=== PATIENT | female | born 1995 | race African-American/Black ===

== ENCOUNTER 2016-11-12 04:36 | Inpatient (IN) | payer MEDICAID ==
[~2016-11-12] VITALS: Ht 165.1 cm; Wt 83.0 kg
[2016-11-12 05:00] VITALS: BP 111/79
[2016-11-12] MEDS ORDERED: FENTANYL PF 100 MCG/2 ML VIAL. IV PRN (05:15)
[2016-11-12] MEDS ORDERED: IBUPROFEN 600 MG TABLET. PO PRN (05:15)
[2016-11-12] MEDS ORDERED: 0.9 % SODIUM CHLORIDE 10 ML DISP.SYRIN. IV PRN ×2 (05:15→13:30)
[2016-11-12] MEDS ORDERED: IBUPROFEN 800 MG TABLET. PO PRN (05:15)
[2016-11-12] MEDS ORDERED: BUTORPHANOL 2 MG VIAL. IV PRN (05:15)
[2016-11-12] MEDS ORDERED: OXYTOCIN 30 UNIT/500 ML PREMIX 500 ML IV PRN ×3 (05:15→13:30)
[2016-11-12] MEDS ORDERED: LIDOCAINE 1% PF 30 ML VIAL. INJ PRN (05:15)
[2016-11-12] MEDS ORDERED: TERBUTALINE 1 MG/ML VIAL. SQ PRN (05:15)
[2016-11-12] MEDS: IV RINGERS,LACTATED 1000ML 1,000 ML IV SCH ×2 (05:30→10:27)
[2016-11-12] MEDS ORDERED: OXYTOCIN in NORMAL SALINE PREMIX 30 UNIT/500 ML BAG. IV ONE (05:30)
[2016-11-12] MEDS ORDERED: AMPICILLIN 2 GM in IV NORMAL SALINE 100ML 100 ML IV ONE (06:00)
[2016-11-12 06:17] LABS: BASO % 0 % (0-3); EOS % 0 % (0-3); HEMATOCRIT 26.9 % (36.0-47.0); HEMOGLOBIN 8.4 g/dL (12.0-15.5); LYMPH % 12 % (24-48); MEAN CORPUSCULAR HEMOGLOBIN 21 pg (25-35); MEAN CORPUSCULAR HGB CONC 31 g/dL (31-37); MEAN CORPUSCULAR VOLUME 67 fL (79-100); MONO % 7 % (0-9); NEUT % 81 % (31-73); PLATELET COUNT 231 x10^3/uL (140-400); RED BLOOD COUNT 3.99 x10^6/uL (3.50-5.40); RED CELL DISTRIBUTION WIDTH 16.9 % (11.5-14.5); WHITE BLOOD COUNT 16.6 x10^3/uL (4.0-11.0)
[2016-11-12 06:35] LABS: BARBITURATES NEG (NEG); BENZODIAZEPINES NEG (NEG); CANNABINOIDS NEG (NEG); COCAINE NEG (NEG); METHADONE NEG (NEG); OPIATES NEG (NEG); PHENCYCLIDINE NEG (NEG)
[2016-11-12 06:43] LABS: ETHANOL, URINE NEG (NEG)
[2016-11-12 07:25] LABS: % EOS 1 % (0-5)
[2016-11-12 07:26] LABS: ANISOCYTOSIS SLIGHT; MICROCYTOSIS MARKED; PLT ESTIMATE ADEQUATE (ADEQUATE); POLYCHROMASIA SLIGHT
[2016-11-12 07:27] LABS: OVALOCYTES FEW; TEAR DROP CELLS FEW
[2016-11-12] MEDS ORDERED: AMPICILLIN 1 GM in IV NORMAL SALINE 50ML 50 ML IV SCH (10:00)
--- NOTE | 2016-11-12 12:17 | PDOC1 ---
OB - History Hx of Present Care: Limited Care Ultrasounds: Normal mid trimester US Past Family/Social History * Past Medical, Surgical, Family and Obstetric Histories reviewed from chart. Blood Type: O+ Rubella: Immune RPR/VDRL: Negative GBS Status: Unknown HBsAG: Negative OB - Chief Complaint & HPI Date of Admission: Date of Admission: Nov 12, 2016 at 05:21 Chief Complaint/History : 4 Para: 3 Reason for admission: active labor Admission Nurse Assessment Rev: Yes Problems: OB - Admission Exam Physical Exam Vitals: VS - Last 72 Hours, by Label Date Time Temp Pulse Resp B/P Pulse Ox O2 Delivery O2 Flow Rate FiO2 11/12/16 10:20 18 Room Air 11/12/16 05:00 98.1 106 20 111/79 Room Air 98.1 HEENT: Normal, Nasal Mucosa Normal, Oropharynx Normal, Moist Membranes, Fontanelles Normal Heart: Regular Rate Lungs: Clear, Equal Abdomen: Gravid Extremities: Normal Pulses, No tenderness or swelling Reflexes: Normal Cervical Dilatation: 3cm Effacement: 50% Station: -2 Membranes: Ruptured Amniotic Fluid: Clear Heart Rate: Normal Accelerations: Accelerations Present Short Term Variability: Present Contractions on Admission: 6-10 Minutes Apart Intensity: Moderate Assessment/Plan Assessment/Plan TIUP ACS MARIA R WANG MD Nov 12, 2016 12:17
--- NOTE | 2016-11-12 12:19 | PDOC ---
VAGINAL DELIVERY DATE DATE: 11/12/16 TIME: 12:17 : 3 EDC: Nov 10, 2016 VACCUM ASSISTED: Yes PLACENTA: Spontaneous SEX: Male WEIGHT 8# Nuchal Cord: No Amniotic Fluid: Clear PAIN: Natural EBL 300CC COMPLICATIONS NONE CONDITION sTABLE Signs of Intrauterine Infectio: None Shoulder Dystocia: No DIAGNOSIS tiup DEL Problems: MARIA R WANG MD Nov 12, 2016 12:19
[2016-11-12] MEDS ORDERED: HYDROCODONE/APAP 5/325MG TABLET. PO PRN (13:30)
[2016-11-12] MEDS ORDERED: ZOLPIDEM 5 MG TABLET. PO PRN (13:30)
[2016-11-12] MEDS ORDERED: DIPHENHYDRAMINE HCL 25 MG CAPSULE PO PRN (13:30)
[2016-11-12] MEDS ORDERED: BENZOCAINE 20% TOPICAL AEROSOL SPRAY 57GM CAN. TP PRN ×2 (13:30→14:30)
[2016-11-12] MEDS ORDERED: MMR per PROTOCOL. MC PRN (13:30)
[2016-11-12] MEDS ORDERED: PHENYLEPH/MINERAL OIL/PETROLAT RECTAL OINTMENT 28GM TUBE. RC PRN (13:30)
[2016-11-12] MEDS ORDERED: HYDROCORTISONE 1% TOPICAL OINTMENT 30GM TUBE. TP PRN (13:30)
[2016-11-12] MEDS ORDERED: MAGNESIUM HYDROXIDE 2,400 MG/30 ML ORAL.SUSP. PO PRN (13:30)
[2016-11-12] MEDS ORDERED: MAG HYDROX/ALUMINUM HYD/SIMETH 30 ML ORAL.SUSP PO PRN (13:30)
[2016-11-12] MEDS ORDERED: SIMETHICONE 80 MG TAB.CHEW PO PRN (13:30)
[2016-11-12] MEDS ORDERED: ACETAMINOPHEN 325 MG TABLET. PO PRN (13:30)
[2016-11-12 14:20] VITALS: BP 116/71
[2016-11-12] MEDS: IBUPROFEN 800 MG TABLET. PO PRN ×2 (15:07→21:40)
[2016-11-12 15:10] VITALS: BP 116/75
[2016-11-12] MEDS ORDERED: IBUPROFEN 600 MG TABLET. PO SCH (18:00)
[2016-11-12 21:08] VITALS: BP 111/59
[2016-11-12] MEDS: DOCUSATE SODIUM 100 MG CAPSULE PO PRN (21:41)
[2016-11-13 01:00] VITALS: BP 105/57
[2016-11-13 04:59] VITALS: BP 100/55
--- NOTE | 2016-11-13 08:08 | PDOC ---
OB Progress Note Date of Service 11/13/16 Time of Evaluation 0805 Notes Pt. feeling well. No complaints. Bottle feeding. Lochia minimal. Lab Laboratory Tests Test 11/12/16 05:20 11/12/16 05:30 11/13/16 04:25 White Blood Count 16.6x10^3/uL (4.0-11.0) Red Blood Count 3.99x10^6/uL (3.50-5.40) Hemoglobin 8.4g/dL (12.0-15.5) Hematocrit 26.9% (36.0-47.0) 23.9% (36.0-47.0) Mean Corpuscular Volume 67fL (79-100) Mean Corpuscular Hemoglobin 21pg (25-35) Mean Corpuscular Hemoglobin Concent 31g/dL (31-37) Red Cell Distribution Width 16.9% (11.5-14.5) Platelet Count 231x10^3/uL (140-400) Neutrophils (%) (Auto) 81% (31-73) Lymphocytes (%) (Auto) 12% (24-48) Monocytes (%) (Auto) 7% (0-9) Eosinophils (%) (Auto) 0% (0-3) Basophils (%) (Auto) 0% (0-3) Neutrophils # (Auto) 13.4x10^3uL (1.8-7.7) Lymphocytes # (Auto) 2.0x10^3/uL (1.0-4.8) Monocytes # (Auto) 1.1x10^3/uL (0.0-1.1) Eosinophils # (Auto) 0.1x10^3/uL (0.0-0.7) Basophils # (Auto) 0.0x10^3/uL (0.0-0.2) Segmented Neutrophils % 85% (35-66) Band Neutrophils % 3% (0-9) Lymphocytes % 8% (24-48) Monocytes % 3% (0-10) Eosinophils % 1% (0-5) Platelet Estimate Adequate (ADEQUATE) Polychromasia Slight Anisocytosis Slight Microcytosis Marked Tear Drop Cells Few Ovalocytes Few RPR Titer Additional Testing Negative (Non Reactive) Urine Opiates Screen Neg (NEG) Urine Methadone Screen Neg (NEG) Urine Barbiturates Neg (NEG) Urine Phencyclidine Screen Neg (NEG) Urine Amphetamine/Methamphetamine Neg (NEG) Urine Benzodiazepines Screen Neg (NEG) Urine Cocaine Screen Neg (NEG) Urine Cannabinoids Screen Neg (NEG) Urine Ethyl Alcohol Neg (NEG) Laboratory Tests Test 11/13/16 04:25 Hematocrit 23.9% (36.0-47.0) Medications Current Medications Sodium Chloride 3 ml 3 ml QSHIFT PRN IV AFTER MEDS AND BLOOD DRAWS; Start at 05:15 Lactated Ringer's (Iv Lactated Ringers) 1,000 ml @ 125 mls/hr Q8H IV Last administered on 11/12/16 10:27; Start 11/12/16 at 05:08; Stop 11/13/16 at 01:19; Status DC Butorphanol Tartrate (Stadol) 2 mg PRN Q1HR PRN IV Severe labor pain Last administered on 11/12/16 10:20; Start 11/12/16 at 05:15; Stop 11/13/16 at 01:20; Status DC Fentanyl Citrate (Fentanyl 2ml Vial) 100 mcg PRN Q10MIN PRN IV Labor pain; Start 11/12/16 at 05:15; Stop 11/13/16 at 01:21; Status DC Terbutaline Sulfate (Brethine) 0.25 mg 1X PRN PRN SQ SEE COMMENTS; Start at 05:15; Stop 11/13/16 at 05:14; Status DC Lidocaine HCl 30 ml 30 ml 1X PRN PRN INJ SEE COMMENTS Last administered on 12:10; Start 11/12/16 at 05:15; Stop 11/14/16 at 05:14 Ampicillin Sodium 2 gm/Sodium Chloride 100 ml @ 200 mls/hr 1X ONCE IV Last administered on 11/12/16 05:31; Start 11/12/16 at 06:00; Stop 11/12/16 at 06:29; Status DC Ampicillin Sodium 1 gm/Sodium Chloride 50 ml @ 100 mls/hr Q4H IV ; Start at 10:00; Stop 11/13/16 at 01:20; Status DC Oxytocin/Sodium Chloride (Oxytocin Premix Infusion) 500 ml @ 0 mls/hr CONT PRN PRN IV Post delivery bleeding; Start 11/12/16 at 05:15; Stop 11/12/16 at 14:03; Status DC Ibuprofen (Motrin) 600 mg PRN Q6HRS PRN PO MODERATE PAIN; Start 11/12/16 at 05: 15; Stop 11/12/16 at 14:02; Status DC Ibuprofen 800 mg 800 mg PRN Q6HRS PRN PO MODERATE PAIN; Start 11/12/16 at 05:15 ; Stop 11/12/16 at 14:02; Status DC Oxytocin/Sodium Chloride (Oxytocin Premix Infusion) 500 ml @ 0 mls/hr CONT PRN IV SEE I/O RECORD; Start 11/12/16 at 05:30; Stop 11/12/16 at 14:03; Status DC Oxytocin/Sodium Chloride (Oxytocin Premix Infusion) 30 unit STK-MED ONCE IV ; Start 11/12/16 at 05:30; Stop 11/12/16 at 08:12; Status DC Sodium Chloride 10 ml 10 ml QSHIFT PRN IV AFTER MEDS AND BLOOD DRAWS; Start 11/12/16 at 13:30 Oxytocin/Sodium Chloride (Oxytocin Premix Infusion) 500 ml @ 62.5 mls/hr CONT PRN IV SEE I/O RECORD; Start 11/12/16 at 13:30; Stop 11/12/16 at 21:29; Status DC Acetaminophen (Tylenol) 650 mg PRN Q6HRS PRN PO MILD PAIN / TEMP; Start at 13:30 Magnesium Hydroxide (Milk Of Magnesia) 2,400 mg PRN DAILY PRN PO CONSTIPATION; Start 11/12/16 at 13:30 Al Hydrox/Mg Hydrox/Simethicone (Mylanta Plus Xs) 30 ml PRN Q4HRS PRN PO HEARTBURN / GAS; Start 11/12/16 at 13:30 Simethicone (Gas-X) 80 mg PRN AFTMEALHC PRN PO GAS / BLOATING; Start 11/12/16 at 13:30 Diphenhydramine HCl (Benadryl) 25 mg PRN Q6HRS PRN PO ITCHING; Start 11/12/16 at 13:30 Benzocaine (Americaine) 1 spray PRN QID PRN TP TOPICAL PAIN; Start 11/12/16 at 13:30 Phenyleph/Shark Oil/Min Oil/Petrol (Preparation H) 1 sven PRN QID PRN RC RECTAL PAIN; Start 11/12/16 at 13:30 Hydrocortisone (Cortaid) 1 sven PRN QID PRN TP PERINEAL PAIN; Start 11/12/16 at 13:30 Ferrous Sulfate (Feosol) 325 mg BIDWMEALS PO ; Start 11/13/16 at 08:00 Zolpidem Tartrate (Ambien) 5 mg PRN QHS PRN PO INSOMNIA, MAY REPEAT X1; Start 11/12/16 at 13:30 Info (Do NOT chart on this placeholder) 1 ea 1X PRN PRN MC SEE COMMENTS; Start 11/12/16 at 13:30 Info (Do NOT chart on this placeholder) 1 ea 1X PRN PRN MC SEE COMMENTS; Start 11/12/16 at 13:30 Ibuprofen (Motrin) 600 mg Q6HRS PO ; Start 11/12/16 at 18:00 Docusate Sodium (Colace) 100 mg PRN BID PRN PO CONSTIPATION Last administered on 11/12/16 21:41; Start 11/12/16 at 13:30 Acetaminophen/ Hydrocodone Bitart (Lortab 5/325) 1 tab PRN Q4HRS PRN PO MILD PAIN Last administered on 11/12/16 21:41; Start 11/12/16 at 13:30 Benzocaine (Americaine) 1 spray PRN Q4HRS PRN TP PAIN; Start 11/12/16 at 14:30 Ibuprofen (Motrin) 800 mg PRN Q6HRS PRN PO INFLAMMATION Last administered on 21:40; Start 11/12/16 at 14:30 Exam Abd: soft, non tender fundus firm Assessment PPD#1 s/p Plan of Care: Continue current Tx, Mgmt FARNAZ ROMAN Jr, MD Nov 13, 2016 08:08
[2016-11-13] MEDS: DOCUSATE SODIUM 100 MG CAPSULE PO PRN (08:15)
[2016-11-13] MEDS: FERROUS SULFATE 325 MG TABLET PO SCH ×2 (08:15→19:35)
[2016-11-13] MEDS: IBUPROFEN 800 MG TABLET. PO PRN (08:16)
[2016-11-13 11:10] VITALS: BP 102/60
[2016-11-13 17:51] VITALS: BP 128/71
[2016-11-13 22:43] VITALS: BP 103/62
[2016-11-14 04:10] VITALS: BP 109/73
--- NOTE | 2016-11-14 07:48 | PDOC3 ---
OB DISCHARGE SUMMARY DATE OF ADMISSION: 11/12/16 DATE OF DISCHARGE: 11/14/16 REASON FOR ADMISSION: Onset of labor PROCEDURES: Ultrasound INTRAPARTUM PROCEDURES: Spontanous Vag Deliv PROCEDURES: None OPERATIONS: None DISCHARGE DIAGNOSIS: Term Delivered DISCHARGE INFORMATION: Activity, Diet HOSPITAL COURSE Unremarkable CONDITION AT DISCHARGE Stable MARIA R WANG MD Nov 14, 2016 07:48
[2016-11-14] MEDS ORDERED: NAPR500T3 PO (07:51)
[2016-11-14] MEDS ORDERED: HYDR-971 PO (07:51)
[2016-11-14] MEDS: DOCUSATE SODIUM 100 MG CAPSULE PO PRN (08:36)
[2016-11-14] MEDS: FERROUS SULFATE 325 MG TABLET PO SCH (08:36)
[2016-11-14 10:30] VITALS: BP 118/74
[2016-11-14 13:35] VITALS: BP 102/61
== END 2016-11-14 15:45 | disposition home or self-care (01) | DRG 775 ==
LOC: 3 SO LND 04:36 → OBSVTOIN 05:21 → 3 SO LND 08:58 → 3 NORTH 14:19
PROVIDERS: ADMIT Specialist; ATTEND Specialist
PROC: 10D07Z6 Extraction of Products of Conception, Vacuum, Via Natural or Artificial Opening (ICD-10-PCS; principal; 2016-11-12)
DX: O80 Encounter for full-term uncomplicated delivery (principal); Z3A.39 39 weeks gestation of pregnancy; Z37.0 Single live birth
CPT/HCPCS: 36415; 85007; 85014; 85027; 86593; 86850; 86900; 86901; G0379; G0481; J0290; J2590; J7120